=== PATIENT | female | born 1945 | race Hispanic/Latino ===

== ENCOUNTER 2017-04-02 13:35 | Outpatient (CLI) | payer MEDICARE, OTHER ==
--- NOTE | 2017-04-02 14:51 | Magnetic Resonance Report ---
MRI OF THE BRAIN WITHOUT CONTRAST: HISTORY: Memory loss PROCEDURE: Multiplanar, multisequence MR imaging of the brain without IV contrast was performed. FINDINGS: Mild nonspecific chronic white matter changes are identified. Otherwise, the brain parenchyma is within normal limits on all sequences. The florentino-white interface is well defined. No evidence for acute ischemia, hemorrhage or mass. No chronic infarct or extra-axial fluid collection. The midline structures are central. The basal cisterns are patent. Normal ventricular size. The orbital cavities and sella turcica demonstrate no abnormality. The visualized paranasal sinuses and mastoid air cells are well aerated. IMPRESSION: Unremarkable non-enhanced MRI of the brain. Nonspecific chronic white matter changes which appear appropriate for this persons age.
== END 2017-04-02 13:36 | disposition home or self-care (01) ==
LOC: MRI 13:35
PROVIDERS: ATTEND Internal Medicine
DX: R41.3 Other amnesia (principal); R90.82 White matter disease, unspecified; I11.0 Hypertensive heart disease with heart failure; I50.9 Heart failure, unspecified; E78.00 Pure hypercholesterolemia, unspecified; I25.10 Atherosclerotic heart disease of native coronary artery without angina pectoris; J18.9 Pneumonia, unspecified organism; F32.9 Major depressive disorder, single episode, unspecified; F41.9 Anxiety disorder, unspecified; Z87.891 Personal history of nicotine dependence
CPT/HCPCS: 70551

== ENCOUNTER 2017-11-05 10:45 | Outpatient (CLI) | payer MEDICARE, OTHER ==
--- NOTE | 2017-11-05 16:25 | Mammography Report ---
BILATERAL DIGITAL SCREENING MAMMOGRAM with CAD: 11/05/17 10:45:00 CLINICAL: Routine screening. COMPARISON:None. Previous [facility] mammograms are not available. FINDINGS: The breasts are almost entirely fatty.Scattered bilateral benign calcifications. No mass, architectural distortion or suspicious calcifications. IMPRESSION: No mammographic evidence of malignancy. BI-RADS CATEGORY: 2 -- Benign RECOMMENDATION: Routine mammographic screening in one year. COMMENT: Patient follow-up letters are generated by our [employer] application.
== END 2017-11-05 10:46 | disposition home or self-care (01) ==
LOC: MAMMO 10:45
PROVIDERS: ATTEND Internal Medicine
DX: Z12.31 Encounter for screening mammogram for malignant neoplasm of breast (principal)
CPT/HCPCS: 77067

== ENCOUNTER 2018-03-01 16:15 | Inpatient (IN) | payer MEDICARE, OTHER ==
[2018-03-01 17:48] LABS: Basophils % (Auto) 0.4 % (0.0-1.8); Eosinophils # (Auto) 0.2 K/mm3 (0.0-0.4); Eosinophils % (Auto) 2.6 % (0.0-4.3); Hematocrit 36.3 % (30.3-42.9); Hemoglobin 11.6 gm/dl (10.1-14.3); Lymphocytes % (Auto) 22.7 % (13.4-35.0); Mean Corpuscular HGB Conc 32 % (30-34); Mean Corpuscular Volume 78 fl (79-97); Monocytes # (Auto) 0.7 K/mm3 (0.0-0.8); Monocytes % (Auto) 7.7 % (0.0-7.3); Platelet Count 241 K/mm3 (140-440); Red Blood Count 4.65 M/mm3 (3.65-5.03); Red Cell Distribution Width 17.8 % (13.2-15.2)
--- NOTE | 2018-03-01 17:59 | Cat Scan Report ---
FINAL REPORT PROCEDURE: CT HEAD/BRAIN WO CON TECHNIQUE: Computerized tomography of the head was performed without contrast material. HISTORY: neuro deficits < 6hrs or sx present upon awakening COMPARISON: Prior CT scan of the brain 01/02/2018 FINDINGS: Brain: There is no evidence of intracranial hemorrhage. No parenchymal hemorrhage is seen. No mass lesions or mass effect is identified. No abnormal extra-axial fluid collections or masses are seen. Small old lacunar infarct versus prominent perivascular space again visualized posterior lateral aspect right basal ganglia. There is some decreased density seen in the periventricular white matter without mass effect. This is fairly symmetric and does not exhibit any mass effect consistent with gliosis probably on the basis of microvascular disease or white matter changes of aging. Ventricles: The ventricles, sulcal pattern and fissures are prominent consistent with atrophy. Bones: No evidence of acute fracture. Paranasal sinuses: Visualized portions are clear. Mastoid air cells: clear IMPRESSION: There is evidence of minimal atrophy and gliosis. There is a stable old lacunar infarct versus prominent perivascular space in the right basal ganglia. No acute intracranial abnormalities are identified.
[2018-03-01 18:00] LABS: INR 0.88 (0.87-1.13)
[2018-03-01 18:01] LABS: Partial Thromboplastin Time 26.6 Sec. (24.2-36.6)
[2018-03-01 18:03] LABS: BUN/Creatinine Ratio 17; Blood Urea Nitrogen 15 mg/dL (7-17); Hemolysis Index 1
[2018-03-01 18:14] LABS: Mean Corpuscular Hemoglobin 25 pg (28-32)
[2018-03-01 18:20] LABS: Chol/HDL Ratio 3.29 %; HDL Cholesterol 47 mg/dL (40-59); LDL Cholesterol,Direct 95 mg/dL (50-130)
[2018-03-02] MEDS ORDERED: ASPIRIN PO ONE (01:33)
--- NOTE | 2018-03-02 01:58 | Emergency Department Report ---
HPI - General Chief Complaint: Dizziness Time Seen by Provider: 03/02/18 01:23 - HPI HPI: Room 18 The patient is a 72-year-old female presenting with a chief complaint near syncope. The patient states today at approximate 14:00 while walking she began feeling dizzy as though she was going to pass out. The patient states she had a headache and neck pain at the time. The patient states she eventually made into the house and called EMS. Patient denied ever having chest pain or shortness of breath. Patient currently does not feel dizzy or have a headache. Patient denies any other forms of pain. Patient never lost consciousness Location: [See above] Duration: [See above] Quality: Headache, dizziness Severity: Currently 0/10 Modifying factors: [see above] Context: [see above] Mode of transportation: [not driving] ED Past Medical Hx - Past Medical History Hx Hypertension: Yes Hx Heart Attack/AMI: Yes Hx Diabetes: Yes Hx Renal Disease: Yes Additional medical history: kidney disease, anxiety - Surgical History Hx Coronary Stent: Yes (RCA stent placed 09/28/2017) Hx Open Heart Surgery: Yes Additional Surgical History: bypass, stents, cath - Family History Family history: no significant - Social History Smoking Status: Former Smoker (none since 2002) Substance Use Type: None - Medications Home Medications: Home Medications Medication Instructions Recorded Confirmed Last Taken Type Citalopram [Celexa] 40 mg PO DAILY 06/15/13 01/03/18 09/25/17 History Travoprost [Travatan Z 0.004%] 2.5 ml INTRAOCULA DAILY 06/15/13 01/03/18 History Insulin Detemir [Levemir Flexpen] 20 units SQ QHS 02/17/14 01/03/18 09/24/17 History ALPRAZolam [Xanax TAB] 0.25 mg PO BID PRN 07/18/15 01/03/18 09/25/17 History Calcium Carbonate [Calcium] 600 mg PO DAILY 07/18/15 01/03/18 09/25/17 History Dexlansoprazole [Dexilant] 60 mg PO QDAY 07/18/15 01/03/18 09/25/17 History ALBUTEROL NEB's [Proventil 0.083% 2.5 mg IH Q4HRT PRN nebu 10/01/17 01/03/18 Unknown Rx NEBS] Aspirin [Aspirin BABY CHEW TAB] 81 mg PO QDAY #30 tab.chew 10/01/17 01/03/18 Unknown Rx AtorvaSTATin [Lipitor] 10 mg PO DAILY #30 tablet 10/01/17 01/03/18 Unknown Rx Carvedilol [Coreg] 6.25 mg PO BID #60 tablet 10/01/17 01/03/18 Unknown Rx Famotidine [Pepcid] 20 mg PO BID #30 tablet 10/01/17 01/03/18 Unknown Rx Folic Acid [Folvite] 1 mg PO QDAY #30 tablet 10/01/17 01/03/18 Unknown Rx ISOSORBIDE MONOnitrate [Imdur ER] 30 mg PO DAILY #30 tablet 10/01/17 01/03/18 Unknown Rx Pramipexole [Mirapex] 1.5 mg PO TID #90 tablet 10/01/17 01/03/18 Unknown Rx Prasugrel [Effient] 10 mg PO QDAY #30 tablet 10/01/17 01/03/18 Unknown Rx clonazePAM [KlonoPIN] 0.5 mg PO QHS #30 tablet 10/01/17 01/03/18 Unknown Rx ED Review of Systems ROS: Stated complaint: LIGHT HEAD Other details as noted in HPI Constitutional: no symptoms reported Eyes: denies: eye pain ENT: denies: throat pain Respiratory: denies: shortness of breath Cardiovascular: denies: chest pain Gastrointestinal: denies: abdominal pain, nausea, vomiting Genitourinary: denies: dysuria Musculoskeletal: denies: back pain Neurological: headache, vertigo Physical Exam - Physical Exam Vital Signs: Vital Signs 03/01/18 03/02/18 17:12 00:34 Temperature 97.9 F 98.7 F Pulse Rate 75 69 Respiratory 18 17 Rate Blood Pressure 133/82 Blood Pressure 133/82 108/48 [Right] O2 Sat by Pulse 96 99 Oximetry Physical Exam: GENERAL: The patient is well-developed well-nourished female lying on stretcher not appearing to be in acute distress. [] HEENT: Normocephalic. Atraumatic. Extraocular motions are intact. Patient has moist mucous membranes. No nystagmus noted NECK: Supple. Trachea midline CHEST/LUNGS: Clear to auscultation. There is no respiratory distress noted. HEART/CARDIOVASCULAR: Regular. There is no tachycardia. There is no gallop rub or murmur. ABDOMEN: Abdomen is soft, nontender. Patient has normal bowel sounds. There is no abdominal distention. SKIN: There is no rash. There is no edema. There is no diaphoresis. NEURO: The patient is awake, alert, and oriented. The patient is cooperative. The patient has no focal neurologic deficits. The patient has normal speech. Cranial nerves II through XII grossly intact, no drift. Normal sensation throughout MUSCULOSKELETAL: There is no evidence of acute injury. ED Course Vital Signs 03/01/18 03/02/18 17:12 00:34 Temperature 97.9 F 98.7 F Pulse Rate 75 69 Respiratory 18 17 Rate Blood Pressure 133/82 Blood Pressure 133/82 108/48 [Right] O2 Sat by Pulse 96 99 Oximetry ED Medical Decision Making - Lab Data Result diagrams: 03/01/18 17:25 03/01/18 17:25 Laboratory Tests 03/01/18 03/01/18 03/01/18 17:25 17:25 17:25 WBC 8.8 RBC 4.65 Hgb 11.6 Hct 36.3 MCV 78 L MCH 25 L MCHC 32 RDW 17.8 H Plt Count 241 Lymph % (Auto) 22.7 [place] % (Auto) 7.7 H Eos % (Auto) 2.6 Baso % (Auto) 0.4 Lymph # 2.0 [place] # 0.7 Eos # 0.2 Baso # 0.0 Seg Neutrophils % 66.6 Seg Neutrophils # 5.9 PT 12.4 INR 0.88 APTT 26.6 Thrombin Time Sodium 142 Potassium 4.2 Chloride 102.3 Carbon Dioxide 28 Anion Gap 16 BUN 15 Creatinine 0.9 Estimated GFR > 60 BUN/Creatinine Ratio 17 Glucose 94 Calcium 9.0 Troponin T 0.037 H Triglycerides 139 Cholesterol 155 LDL Cholesterol Direct 95 HDL Cholesterol 47 Cholesterol/HDL Ratio 3.29 03/01/18 17:25 WBC RBC Hgb Hct MCV MCH MCHC RDW Plt Count Lymph % (Auto) [place] % (Auto) Eos % (Auto) Baso % (Auto) Lymph # [place] # Eos # Baso # Seg Neutrophils % Seg Neutrophils # PT INR APTT Thrombin Time 16.5 Sodium Potassium Chloride Carbon Dioxide Anion Gap BUN Creatinine Estimated GFR BUN/Creatinine Ratio Glucose Calcium Troponin T Triglycerides Cholesterol LDL Cholesterol Direct HDL Cholesterol Cholesterol/HDL Ratio - EKG Data -: EKG Interpreted by Me EKG shows normal: sinus rhythm Rate: normal - EKG Data When compared to previous EKG there are: previous EKG unavailable Interpretation: nonspecific ST-T wave maikol (T-wave inversion in lead V2) - Radiology Data Radiology results: report reviewed (CT head), image reviewed (CT head) [facility] [address] [place] [address] Cat Scan Report Signed Patient: YAYA AGUDELO MR#: [id number] : 1944 Acct:[id number] Age/Sex: 72 / F ADM Date: 03/01/18 Loc: ED Attending Dr: Ordering Physician: THELMA WRIGHT MD Date of Service: 03/01/18 Procedure(s): CT head/ brain wo con Accession Number(s): [id number] cc: ED MD ADRIANA FINAL REPORT PROCEDURE : CT HEAD/BRAIN WO CON TECHNIQUE: Computerized tomography of the head was performed without contrast material. HISTORY: neuro deficits lt; 6hrs or sx present upon awakening COMPARISON: Prior CT scan of the brain 01/02/2018 FINDINGS: Brain: There is no evidence of intracranial hemorrhage. No parenchymal hemorrhage is seen. No mass lesions or mass effect is identified. No abnormal extra-axial fluid collections or masses are seen. Small old lacunar infarct versus prominent perivascular space again visualized posterior lateral aspect right basal ganglia. There is some decreased density seen in the periventricular white matter without mass effect. This is fairly symmetric and does not exhibit any mass effect consistent with gliosis probably on the basis of microvascular disease or white matter changes of aging. Ventricles: The ventricles, sulcal pattern and fissures are prominent consistent with atrophy. Bones: No evidence of acute fracture. Paranasal sinuses: Visualized portions are clear. Mastoid air cells: clear IMPRESSION: There is evidence of minimal atrophy and gliosis. There is a stable old lacunar infarct versus prominent perivascular space in the right basal ganglia. No acute intracranial abnormalities are identified. Transcribed By: JESSICA Dictated By: TINO HOLLINS MD Electronically Authenticated By: TINO HOLLINS MD Signed Date/Time: 1754 DD/ 54 TD/TT: 03/01/181754 - Differential Diagnosis ICH, ACS, vertigo, dysrhythmia Critical care attestation.: If time is entered above; I have spent that time in minutes in the direct care of this critically ill patient, excluding procedure time. ED Disposition Clinical Impression: Elevated troponin, Near syncope Disposition: OP ADMIT IP TO THIS HOSP Is pt being admited?: Yes Does the pt Need Aspirin: Yes Condition: Fair Referrals: PRIMARY CARE,MD [Primary Care Provider] - 3-5 Days Time of Disposition: 02:28 (hospitalist paged (Dr. Radha Freeman))
[2018-03-02] MEDS ORDERED: TYLENOL PO PRN (03:05)
[2018-03-02] MEDS ORDERED: ZOFRAN IV PRN (03:05)
[2018-03-02 03:46] LABS: Creatine Kinase MB 10.7 ng/mL (0.0-4.0)
--- NOTE | 2018-03-02 08:51 | History and Physical Report ---
History of Present Illness Date of admission: 03/02/18 03:03 History of present illness: This is a 72-year-old woman with history of hypertension, diabetes, coronary artery disease, chronic kidney disease, glaucoma, pw syncope The patient is a 72-year-old female presenting with a chief complaint near syncope. The patient states today at approximate 14:00 while walking she began feeling dizzy as though she was going to pass out. The patient states she had a headache and neck pain at the time. The patient states she eventually made into the house and called EMS. Patient denied ever having chest pain or shortness of breath. Patient currently does not feel dizzy or have a headache. Patient denies any other forms of pain. Patient never lost consciousness PAST MEDICAL HISTORY: Hypertension, diabetes, coronary artery disease, chronic kidney disease, glaucoma PAST SURGICAL HISTORY: CABG SOCIAL HISTORY: Denies alcohol, tobacco, drugs FAMILY HISTORY: Hypertension Medications and Allergies Allergies Allergy/AdvReac Type Severity Reaction Status Date / Time benztropine Allergy Unknown Verified 12/16/15 12:58 doxycycline Allergy Headache Verified 12/16/15 12:58 Home Medications Medication Instructions Recorded Confirmed Last Taken Type Citalopram [Celexa] 40 mg PO DAILY 06/15/13 03/02/18 09/25/17 History Travoprost [Travatan Z 0.004%] 2.5 ml INTRAOCULA DAILY 06/15/13 03/02/18 History Insulin Detemir [Levemir Flexpen] 20 units SQ QHS 02/17/14 03/02/18 09/24/17 History ALPRAZolam [Xanax TAB] 0.25 mg PO BID PRN 07/18/15 03/02/18 09/25/17 History Calcium Carbonate [Calcium] 600 mg PO DAILY 07/18/15 03/02/18 09/25/17 History Dexlansoprazole [Dexilant] 60 mg PO QDAY 07/18/15 03/02/18 09/25/17 History ALBUTEROL NEB's [Proventil 0.083% 2.5 mg IH Q4HRT PRN nebu 10/01/17 03/02/18 Unknown Rx NEBS] Aspirin [Aspirin BABY CHEW TAB] 81 mg PO QDAY #30 tab.chew 10/01/17 03/02/18 Unknown Rx AtorvaSTATin [Lipitor] 10 mg PO DAILY #30 tablet 10/01/17 03/02/18 Unknown Rx Carvedilol [Coreg] 6.25 mg PO BID #60 tablet 10/01/17 03/02/18 Unknown Rx Famotidine [Pepcid] 20 mg PO BID #30 tablet 10/01/17 03/02/18 Unknown Rx Folic Acid [Folvite] 1 mg PO QDAY #30 tablet 10/01/17 03/02/18 Unknown Rx Pramipexole [Mirapex] 1.5 mg PO TID #90 tablet 10/01/17 03/02/18 Unknown Rx Prasugrel [Effient] 10 mg PO QDAY #30 tablet 10/01/17 03/02/18 Unknown Rx clonazePAM [KlonoPIN] 0.5 mg PO QHS #30 tablet 10/01/17 03/02/18 Unknown Rx ARIPiprazole [Abilify] 10 mg PO DAILY 03/02/18 03/02/18 Unknown History ISOSORBIDE MONOnitrate [Imdur ER] 60 mg PO DAILY 03/02/18 03/02/18 Unknown History Memantine [Namenda] 10 mg PO BID 03/02/18 03/02/18 Unknown History Ranitidine HCl [Zantac 150 MG TAB] 150 mg PO BID 03/02/18 03/02/18 Unknown History Ranolazine [Ranexa] 500 mg PO BID 03/02/18 03/02/18 Unknown History Active Meds: Active Medications Acetaminophen (Tylenol) 650 mg PO Q4H PRN PRN Reason: Non Cardiac Pain or Temp>100.5 Ondansetron HCl (Zofran) 4 mg IV Q4H PRN PRN Reason: N/V IF NPO AND NO IV ACCESS Exam - Constitutional Vitals: Temp Pulse Resp BP Pulse Ox 98.5 F 83 20 135/64 95 03/02/18 04:13 03/02/18 04:13 03/02/18 04:13 03/02/18 04:13 03/02/18 04:13 Results - Labs CBC & Chem 7: 03/01/18 17:25 03/01/18 17:25 Labs: Laboratory Last Values WBC 8.8 K/mm3 (4.5-11.0) 03/01/18 17:25 RBC 4.65 M/mm3 (3.65-5.03) 03/01/18 17:25 Hgb 11.6 gm/dl (10.1-14.3) 03/01/18 17:25 Hct 36.3 % (30.3-42.9) 03/01/18 17:25 MCV 78 fl (79-97) L 03/01/18 17:25 MCH 25 pg (28-32) L 03/01/18 17:25 MCHC 32 % (30-34) 03/01/18 17:25 RDW 17.8 % (13.2-15.2) H 03/01/18 17:25 Plt Count 241 K/mm3 (140-440) 03/01/18 17:25 Lymph % (Auto) 22.7 % (13.4-35.0) 03/01/18 17:25 [place] % (Auto) 7.7 % (0.0-7.3) H 03/01/18 17:25 Eos % (Auto) 2.6 % (0.0-4.3) 03/01/18 17:25 Baso % (Auto) 0.4 % (0.0-1.8) 03/01/18 17:25 Lymph # 2.0 K/mm3 (1.2-5.4) 03/01/18 17:25 [place] # 0.7 K/mm3 (0.0-0.8) 03/01/18 17:25 Eos # 0.2 K/mm3 (0.0-0.4) 03/01/18 17:25 Baso # 0.0 K/mm3 (0.0-0.1) 03/01/18 17:25 Seg Neutrophils % 66.6 % (40.0-70.0) 03/01/18 17:25 Seg Neutrophils # 5.9 K/mm3 (1.8-7.7) 03/01/18 17:25 PT 12.4 Sec. (12.2-14.9) 03/01/18 17:25 INR 0.88 (0.87-1.13) 03/01/18 17:25 APTT 26.6 Sec. (24.2-36.6) 03/01/18 17:25 Thrombin Time 16.5 Sec. (15.1-19.6) 03/01/18 17:25 Sodium 142 mmol/L (137-145) 03/01/18 17:25 Potassium 4.2 mmol/L (3.6-5.0) 03/01/18 17:25 Chloride 102.3 mmol/L (98-107) 03/01/18 17:25 Carbon Dioxide 28 mmol/L (22-30) 03/01/18 17:25 Anion Gap 16 mmol/L 03/01/18 17:25 BUN 15 mg/dL (7-17) 03/01/18 17:25 Creatinine 0.9 mg/dL (0.7-1.2) 03/01/18 17:25 Estimated GFR > 60 ml/min 03/01/18 17:25 BUN/Creatinine Ratio 17 % 03/01/18 17:25 Glucose 94 mg/dL (65-100) 03/01/18 17:25 Calcium 9.0 mg/dL (8.4-10.2) 03/01/18 17:25 Total Creatine Kinase 186 units/L (30-135) H 03/02/18 03:13 CK-MB (CK-2) 10.7 ng/mL (0.0-4.0) H 03/02/18 03:13 CK-MB (CK-2) Rel Index 5.7 (0-4) H 03/02/18 03:13 Troponin T 0.013 ng/mL (0.00-0.029) 03/02/18 03:13 Triglycerides 139 mg/dL (2-149) 03/01/18 17:25 Cholesterol 155 mg/dL (50-199) 03/01/18 17:25 LDL Cholesterol Direct 95 mg/dL (50-130) 03/01/18 17:25 HDL Cholesterol 47 mg/dL (40-59) 03/01/18 17:25 Cholesterol/HDL Ratio 3.29 % 03/01/18 17:25 Assessment and Plan Assessment and plan: 72f pw syncope . syncope, Transient automonic dysfunction; may be related to low bp, bp meds held . Hypertension bp meds held due to relative hypotension , diabetes resume lantus and ssi , coronary artery disease cardiology consulted recent stress test and echo in 10/08, unremarkable , chronic kidney disease stable, ntd
[2018-03-02] MEDS ORDERED: PROVENTIL IH PRN (08:56)
[2018-03-02] MEDS ORDERED: D50W (25GM) Syringe IV PRN (08:57)
[2018-03-02] MEDS ORDERED: NON-FORMULARY (Dexlansoprazole [Dexilant] 60 MG) PO SCH (10:00)
[2018-03-02] MEDS ORDERED: NON-FORMULARY (Travoprost [Travatan Z 0.004%] 2.5 ML) INTRAOCULA SCH (10:00)
[2018-03-02] MEDS ORDERED: NON-FORMULARY (Calcium Carbonate [Calcium] 600 MG) PO SCH (10:00)
[2018-03-02] MEDS ORDERED: PEPCID PO SCH (10:00)
[2018-03-02 11:29] LABS: Creatine Kinase MB 8.3 ng/mL (0.0-4.0)
[2018-03-02] MEDS: HumaLOG SUB-Q SCH ×3 (11:30→23:11)
[2018-03-02] MEDS: celeXA PO SCH (11:37)
[2018-03-02] MEDS: EFFIENT PO SCH (11:37)
[2018-03-02] MEDS: FOLVITE PO SCH (11:37)
[2018-03-02] MEDS: BABY ASPIRIN PO SCH (11:38)
--- NOTE | 2018-03-02 11:42 | Consultation ---
History of Present Illness Consult date: 03/02/18 Requesting physician: CYNTHIA NOEL Consult reason: syncope, other (low BP, history of CAD) History of present illness: The patient is a 72 year old female who is followed by Dr. Delgado in our office with a past medical history significant for CAD s/p CABG (2011 at [place]) and PCI (most recent PCI of RCA with TEQUILA on 09/28/17), HTN, DM, psych d/o. She presented with c/o lightheadedness and headache since yesterday around 2PM. She reports her headache is in the occipital area. She also reports that her BPs have been "running low" at home. She also reports stable, intermittent, exertional chest pain which she has experienced for years. She denies any palpitations, SOB, n/v, diaphoresis or syncope. On evaluation, she reports resolution of her symptoms and is requesting to be discharged home. Pharmacologic MPI stress test done 09/2017 was negative for significant ischemia , EF 63%. Echo done 12/2017 showed EF 50-55%, at least mild with mean gradient of 8mmHg , trace MR. Past History Past Medical History: CAD, diabetes, hypertension Past Surgical History: CABG, PTCA Medications and Allergies Allergies Allergy/AdvReac Type Severity Reaction Status Date / Time benztropine Allergy Unknown Verified 12/16/15 12:58 doxycycline Allergy Headache Verified 12/16/15 12:58 Home Medications Medication Instructions Recorded Confirmed Last Taken Type Citalopram [Celexa] 40 mg PO DAILY 06/15/13 03/02/18 09/25/17 History Travoprost [Travatan Z 0.004%] 2.5 ml INTRAOCULA DAILY 06/15/13 03/02/18 History Insulin Detemir [Levemir Flexpen] 20 units SQ QHS 02/17/14 03/02/18 09/24/17 History ALPRAZolam [Xanax TAB] 0.25 mg PO BID PRN 07/18/15 03/02/18 09/25/17 History Calcium Carbonate [Calcium] 600 mg PO DAILY 07/18/15 03/02/18 09/25/17 History Dexlansoprazole [Dexilant] 60 mg PO QDAY 07/18/15 03/02/18 09/25/17 History ALBUTEROL NEB's [Proventil 0.083% 2.5 mg IH Q4HRT PRN nebu 10/01/17 03/02/18 Unknown Rx NEBS] Aspirin [Aspirin BABY CHEW TAB] 81 mg PO QDAY #30 tab.chew 10/01/17 03/02/18 Unknown Rx AtorvaSTATin [Lipitor] 10 mg PO DAILY #30 tablet 10/01/17 03/02/18 Unknown Rx Carvedilol [Coreg] 6.25 mg PO BID #60 tablet 10/01/17 03/02/18 Unknown Rx Famotidine [Pepcid] 20 mg PO BID #30 tablet 10/01/17 03/02/18 Unknown Rx Folic Acid [Folvite] 1 mg PO QDAY #30 tablet 10/01/17 03/02/18 Unknown Rx Pramipexole [Mirapex] 1.5 mg PO TID #90 tablet 10/01/17 03/02/18 Unknown Rx Prasugrel [Effient] 10 mg PO QDAY #30 tablet 10/01/17 03/02/18 Unknown Rx clonazePAM [KlonoPIN] 0.5 mg PO QHS #30 tablet 10/01/17 03/02/18 Unknown Rx ARIPiprazole [Abilify] 10 mg PO DAILY 03/02/18 03/02/18 Unknown History ISOSORBIDE MONOnitrate [Imdur ER] 60 mg PO DAILY 03/02/18 03/02/18 Unknown History Memantine [Namenda] 10 mg PO BID 03/02/18 03/02/18 Unknown History Ranitidine HCl [Zantac 150 MG TAB] 150 mg PO BID 03/02/18 03/02/18 Unknown History Ranolazine [Ranexa] 500 mg PO BID 03/02/18 03/02/18 Unknown History Active Meds: Active Medications Acetaminophen (Tylenol) 650 mg PO Q4H PRN PRN Reason: Non Cardiac Pain or Temp>100.5 Albuterol (Proventil) 2.5 mg IH Q4HRT PRN PRN Reason: Shortness Of Breath Aspirin (Baby Aspirin) 81 mg PO QDAY [facility] Last Admin: 03/02/18 11:38 Dose: 81 mg Atorvastatin Calcium (Lipitor) 10 mg PO DAILY [facility] Last Admin: 03/02/18 11:37 Dose: 10 mg Calcium Carbonate/Glycine (Oscal) 1,250 mg PO DAILY [facility] Citalopram Hydrobromide (Celexa) 40 mg PO DAILY [facility] Last Admin: 03/02/18 11:37 Dose: 40 mg Dextrose (D50w (25gm) Syringe) 50 ml IV PRN PRN PRN Reason: Hypoglycemia Famotidine (Pepcid) 20 mg PO BID [facility] Last Admin: 03/02/18 11:37 Dose: 20 mg Folic Acid (Folvite) 1 mg PO QDAY [facility] Last Admin: 03/02/18 11:37 Dose: 1 mg Insulin Glargine (Lantus) 20 units SUB-Q QHS [facility] Insulin Human Lispro (Humalog) 0 unit SUB-Q ACHS [facility]; Protocol Miscellaneous Medication (Travoprost [Travatan Z 0.004%]) 2.5 ml INTRAOCULA DAILY [facility] Ondansetron HCl (Zofran) 4 mg IV Q4H PRN PRN Reason: N/V IF NPO AND NO IV ACCESS Pantoprazole Sodium (Protonix) 40 mg PO DAILY [facility] Pramipexole Dihydrochloride (Mirapex) 1.5 mg PO TID [facility] Prasugrel (Effient) 10 mg PO QDAY [facility] Last Admin: 03/02/18 11:37 Dose: 10 mg Review of Systems Constitutional: no weight loss, no weight gain, no fever, no chills, no sweats Ears, nose, mouth and throat: no ear pain, no nose pain, no sinus pressure, no sinus pain Cardiovascular: chest pain, lightheadedness, no orthopnea, no palpitations, no rapid/irregular heart beat, no edema, no syncope, no shortness of breath, no dyspnea on exertion Respiratory: no cough, no shortness of breath, no dyspnea on exertion, no congestion, no wheezing, no pain on inspiration Gastrointestinal: no abdominal pain, no nausea, no vomiting, no diarrhea, no constipation, no change in bowel habits Genitourinary Female: no pelvic pain, no flank pain, no dysuria, no urinary frequency, no urgency Musculoskeletal: no neck stiffness, no neck pain, no shooting arm pain, no arm numbness/tingling, no low back pain, no shooting leg pain, no leg numbness/ tingling, no redness of joints Integumentary: no rash, no pruritis, no redness, no sores, no wounds Neurological: headaches, no head injury, no paralysis, no weakness, no parathesias, no numbness, no tingling, no seizures, no syncope Psychiatric: no anxiety Endocrine: no cold intolerance, no heat intolerance Hematologic/Lymphatic: no easy bruising, no easy bleeding, no lymphadenopathy Allergic/Immunologic: no urticaria, no wheezing, no persistent infections Physical Examination Vital Signs Temp Pulse Resp BP Pulse Ox 97.9 F 75 18 133/82 96 03/01/18 17:12 03/01/18 17:12 03/01/18 17:12 03/01/18 17:12 03/01/18 17:12 General appearance: no acute distress HEENT: Positive: PERRL, Normocephaly, Mucus Membranes Moist Neck: Positive: neck supple, trachea midline Cardiac: Positive: Reg Rate and Rhythm, S1/S2 Lungs: Positive: clear to auscultation Neuro: Positive: Grossly Intact Abdomen: Positive: Soft. Negative: Tender Skin: Positive: Clear. Negative: Rash, Wound Musculoskeletal: No Fluid Collection, No Pain, Normal Range of Motion Extremities: Absent: edema Results 03/01/18 17:25 03/01/18 17:25 Cardiac Enzymes 03/02/18 03/02/18 Range/Units 03:13 09:40 CK-MB (CK-2) 10.7 H 8.3 H (0.0-4.0) ng/mL Coagulation 03/01/18 Range/Units 17:25 PT 12.4 (12.2-14.9) Sec. INR 0.88 (0.87-1.13) APTT 26.6 (24.2-36.6) Sec. Lipids 03/01/18 Range/Units 17:25 Triglycerides 139 (2-149) mg/dL Cholesterol 155 (50-199) mg/dL HDL Cholesterol 47 (40-59) mg/dL Cholesterol/HDL Ratio 3.29 % CBC 03/01/18 Range/Units 17:25 WBC 8.8 (4.5-11.0) K/mm3 RBC 4.65 (3.65-5.03) M/mm3 Hgb 11.6 (10.1-14.3) gm/dl Hct 36.3 (30.3-42.9) % Plt Count 241 (140-440) K/mm3 Lymph # 2.0 (1.2-5.4) K/mm3 [place] # 0.7 (0.0-0.8) K/mm3 Eos # 0.2 (0.0-0.4) K/mm3 Baso # 0.0 (0.0-0.1) K/mm3 Comprehensive Metabolic Panel 03/01/18 Range/Units 17:25 Sodium 142 (137-145) mmol/L Potassium 4.2 (3.6-5.0) mmol/L Chloride 102.3 (98-107) mmol/L Carbon Dioxide 28 (22-30) mmol/L BUN 15 (7-17) mg/dL Creatinine 0.9 (0.7-1.2) mg/dL Glucose 94 (65-100) mg/dL Calcium 9.0 (8.4-10.2) mg/dL - Imaging and Cardiology Echo: report reviewed ( 12/2017 showed EF 50-55%, at least mild with mean gradient of 8mmHg, trace MR) EKG: report reviewed, image reviewed EKG interpretations - Telemetry EKG Rhythm: Sinus Rhythm - EKG Sinus rhythms and dysrhythmias: sinus rhythm Myocardial infarction: anterior SD (old age or i Assessment and Plan Assessment: Lightheadedness - recurrent; currently resolved; head CT with NAF Headache - currently resolved; head CT with NAF CAD s/p CABG (2011 at [place]) and PCI (most recent PCI of RCA with TEQUILA on 09/28/17) Recurrent intermittent exertional chest pain - Pharmacologic MPI stress test done 09/2017 was negative for significant ischemia, EF 63%; ECG with no acute ischemic changes; currently resolved. Minimally elevated troponin - with downwards trend; unchanged from prior admissions; ECG with no acute ischemic changes. HTN - stable DM H/o psych d/o Plan: Cont home cardiac regimen. Obtain orthostatics. Pending orthostatics are unremarkable, pt may discharge home from cardiology standpoint. Recommend follow up in our office with Dr. Delgado within 2 weeks of hospital discharge ([phone]). The patient has been seen in conjunction with Dr. Barrett who agrees with the assessment and plan of care.
[2018-03-02] MEDS: MIRAPEX PO SCH ×2 (15:14→23:02)
[2018-03-02] MEDS ORDERED: LATANOPROST 0.005% OU SCH (22:00)
[2018-03-02] MEDS ORDERED: INSULIN DETEMIR 20 UNIT SQ SCH (22:00)
[2018-03-02] MEDS ORDERED: LANTUS SUB-Q SCH (22:00)
[2018-03-03] MEDS: HumaLOG SUB-Q SCH ×2 (08:25→12:10)
[2018-03-03] MEDS ORDERED: PROTONIX PO SCH (10:00)
[2018-03-03] MEDS ORDERED: OSCAL PO SCH (10:00)
[2018-03-03] MEDS: celeXA PO SCH (11:45)
[2018-03-03] MEDS: BABY ASPIRIN PO SCH (11:45)
[2018-03-03] MEDS: MIRAPEX PO SCH (11:45)
[2018-03-03] MEDS: EFFIENT PO SCH (11:45)
[2018-03-03] MEDS: FOLVITE PO SCH (11:45)
--- NOTE | 2018-03-03 15:39 | Discharge Summary ---
Providers - Providers Date of Admission: 03/02/18 03:03 Attending physician: CYNTHIA NOEL MD 03/02/18 10:12 Consult to Physician [CONS] Routine Comment: Consulting Provider: NADER BASHIR Physician Instructions: Reason For Exam: syncope. low BP, hx of cad Primary care physician: HOME CARE ASSISTANT Hospitalization Condition: Fair Hospital course: 72f pw syncope . syncope, Transient automonic dysfunction; may be related to low bp, bp meds held . Hypertension bp meds held due to relative hypotension , diabetes resume lantus and ssi , coronary artery disease cardiology consulted recent stress test and echo in 10/08, unremarkable , chronic kidney disease stable, ntd Disposition: TO HOME OR SELFCARE Time spent for discharge: 33 minutes Core Measure Documentation - Palliative Care Palliative Care/ Comfort Measures: Not Applicable - Core Measures Any of the following diagnoses?: none Exam - Constitutional Vitals: Temp Pulse Resp BP Pulse Ox 98.5 F 78 18 141/50 98 03/03/18 13:01 03/03/18 13:01 03/03/18 13:01 03/03/18 13:01 03/03/18 13:01 General appearance: Present: no acute distress, well-nourished - EENT Eyes: Present: PERRL ENT: hearing intact, clear oral mucosa - Neck Neck: Present: supple, normal ROM - Respiratory Respiratory effort: normal Respiratory: bilateral: CTA - Cardiovascular Heart Sounds: Present: S1 & S2. Absent: rub, click - Extremities Extremities: pulses symmetrical, No edema Peripheral Pulses: within normal limits - Abdominal General gastrointestinal: Present: soft, non-tender, non-distended, normal bowel sounds Female genitourinary: Present: normal - Integumentary Integumentary: Present: clear, warm, dry - Musculoskeletal Musculoskeletal: gait normal, strength equal bilaterally - Psychiatric Psychiatric: appropriate mood/affect, intact judgment & insight - Neurologic Neurologic: CNII-XII intact, moves all extremities Plan Follow up with: PRIMARY CARE, [Primary Care Provider] - 3-5 Days Prescriptions: Metoprolol Succinate [Toprol Xl] 25 mg PO DAILY #30 tab.er.24h
[2018-03-03 17:24] VITALS: BP 138/52
== END 2018-03-03 18:40 | disposition home or self-care (01) | DRG 74 ==
LOC: ED 16:15 → 4A 03-02 03:03
PROVIDERS: ADMIT Internal Medicine; ATTEND Internal Medicine
DX: G90.8 Other disorders of autonomic nervous system (principal); I95.9 Hypotension, unspecified; N18.9 Chronic kidney disease, unspecified; I12.9 Hypertensive chronic kidney disease with stage 1 through stage 4 chronic kidney disease, or unspecified chronic kidney disease; E11.22 Type 2 diabetes mellitus with diabetic chronic kidney disease; F41.9 Anxiety disorder, unspecified; I25.10 Atherosclerotic heart disease of native coronary artery without angina pectoris; H40.9 Unspecified glaucoma; Z82.49 Family history of ischemic heart disease and other diseases of the circulatory system; Z88.8 Allergy status to other drugs, medicaments and biological substances; Z87.891 Personal history of nicotine dependence; Z95.1 Presence of aortocoronary bypass graft
CPT/HCPCS: 36415; 70450; 80048; 80061; 82550; 82553; 82962; 84484; 85025; 85610; 85670; 85730; 93005; 93010; A9270-GY; J1815

== ENCOUNTER 2018-03-20 11:09 | Emergency (ER) | payer MEDICARE, OTHER ==
[2018-03-20] MEDS ORDERED: NACL 0.9% 50 ML ONE (11:21)
[2018-03-20] MEDS ORDERED: ACTIVASE ONE (11:22)
[2018-03-20] MEDS ORDERED: KEPPRA 1,000 MG/NS 0.75% 100ML 1,000 MG/100 ML BAG IV ONE (11:35)
--- NOTE | 2018-03-20 11:38 | Cat Scan Report ---
CT HEAD WITHOUT CONTRAST: 03/20/18 11:11 CLINICAL: 98N-STROKE ALERT. TECHNIQUE: 2.5-mm noncontrast scans. COMPARISON:03/01/18 FINDINGS: A peripheral right parietal lobe acute hemorrhage measures approximately 2.6 x 1.5 x 2.0 cm. It is located near the midline. Mild surrounding edema and slight mass effect with slight deviation of the falx to the left. No other hemorrhage. The fibroid is inferior to the placenta. The ventricles and sulci are slightly large for age but unchanged compared to the prior exam. Mild bilateral stable periventricular white matter hypodensities. Small bilateral chronic basal ganglia lacunar infarcts. No mass or mass effect. No hemorrhage, edema or extra-axial collection. The sinuses are clear. Normal orbits and soft tissues. The calvarium and skull base are intact. IMPRESSION: An acute intraparenchymal hemorrhage of the right parietal lobe with mild mass effect. Suspect hemorrhagic infarct. Mild chronic white matter microangiopathy and chronic bilateral basal ganglia lacunar infarcts. Verbal report was given to Dr. Pruitt in the emergency department on 03/20/18 at 11:35. 98N-STROKE ALERT
[2018-03-20 11:48] LABS: Basophils % (Auto) 0.4 % (0.0-1.8); Eosinophils # (Auto) 0.1 K/mm3 (0.0-0.4); Eosinophils % (Auto) 1.3 % (0.0-4.3); Hematocrit 36.5 % (30.3-42.9); Hemoglobin 11.7 gm/dl (10.1-14.3); Lymphocytes # (Auto) 1.3 K/mm3 (1.2-5.4); Lymphocytes % (Auto) 13.8 % (13.4-35.0); Mean Corpuscular HGB Conc 32 % (30-34); Mean Corpuscular Hemoglobin 25 pg (28-32); Mean Corpuscular Volume 78 fl (79-97); Monocytes # (Auto) 0.5 K/mm3 (0.0-0.8); Monocytes % (Auto) 5.6 % (0.0-7.3); Platelet Count 217 K/mm3 (140-440); Red Blood Count 4.69 M/mm3 (3.65-5.03)
[2018-03-20 11:59] LABS: INR 0.9 (0.87-1.13)
[2018-03-20 12:00] LABS: Partial Thromboplastin Time 25.2 Sec. (24.2-36.6)
[2018-03-20 12:03] LABS: BUN/Creatinine Ratio 12; Blood Urea Nitrogen 11 mg/dL (7-17); Hemolysis Index 5
--- NOTE | 2018-03-20 12:03 | Emergency Department Report ---
ED Neuro Deficit HPI - General Stated Complaint: POSSIBLE STROKE Time Seen by Provider: 03/20/18 11:14 - History of Present Illness Initial Comments: Patient is a 72 year old insulin-dependent diabetic with a history of hypertension who is taking Effient. She states that while she was taking a shower she developed left-sided weakness. Just shortly after the onset of symptoms at or about 10 AM she summoned EMS. Medics arrived at the scene to find the patient with a left hemiparesis. The patient did not complain of headache. She denied any sensory change. She denied any visual loss. She is able to communicate. Her GCS was 15 on arrival. She did not report any other intercurrent symptoms. She states that she is independent living. EMS stated that she has home health. However, the patient denied this. -: hour(s) Location: left arm, left leg Presenting Symptoms: Present: Weak/Paralyzed One Side History of same: No Place: home Severity: moderate Quality: weak Improves With: none On Anticoagulants: No (antiplatelet agent only) Context: sudden onset Associated Symptoms: denies other symptoms - Related Data Home Medications: Home Medications Medication Instructions Recorded Confirmed Last Taken Citalopram [Celexa] 40 mg PO DAILY 06/15/13 03/02/18 09/25/17 Travoprost [Travatan Z 0.004%] 2.5 ml INTRAOCULA DAILY 06/15/13 03/02/18 Insulin Detemir [Levemir Flexpen] 20 units SQ QHS 02/17/14 03/02/18 09/24/17 ALPRAZolam [Xanax TAB] 0.25 mg PO BID PRN 07/18/15 03/02/18 09/25/17 Calcium Carbonate [Calcium] 600 mg PO DAILY 07/18/15 03/02/18 09/25/17 Dexlansoprazole [Dexilant] 60 mg PO QDAY 07/18/15 03/02/18 09/25/17 ARIPiprazole [Abilify TAB] 10 mg PO DAILY 03/02/18 03/02/18 Unknown Memantine [Namenda] 10 mg PO BID 03/02/18 03/02/18 Unknown Ranolazine [Ranexa] 500 mg PO BID 03/02/18 03/02/18 Unknown Previous Rx's Medication Instructions Recorded Last Taken Type ALBUTEROL NEB's [Proventil 0.083% 2.5 mg IH Q4HRT PRN nebu 10/01/17 Unknown Rx NEBS] Aspirin [Aspirin BABY CHEW TAB] 81 mg PO QDAY #30 tab.chew 10/01/17 Unknown Rx AtorvaSTATin [Lipitor] 10 mg PO DAILY #30 tablet 10/01/17 Unknown Rx Famotidine [Pepcid] 20 mg PO BID #30 tablet 10/01/17 Unknown Rx Folic Acid [Folvite] 1 mg PO QDAY #30 tablet 10/01/17 Unknown Rx Pramipexole [Mirapex] 1.5 mg PO TID #90 tablet 10/01/17 Unknown Rx Prasugrel [Effient] 10 mg PO QDAY #30 tablet 10/01/17 Unknown Rx clonazePAM [KlonoPIN] 0.5 mg PO QHS #30 tablet 10/01/17 Unknown Rx Metoprolol Succinate [Toprol Xl] 25 mg PO DAILY #30 tab.er.24h 03/03/18 Unknown Rx Allergies/Adverse Reactions: Allergies Allergy/AdvReac Type Severity Reaction Status Date / Time benztropine Allergy Unknown Verified 12/16/15 12:58 doxycycline Allergy Headache Verified 12/16/15 12:58 ED Review of Systems ROS: Stated complaint: POSSIBLE STROKE Other details as noted in HPI Comment: All other systems reviewed and negative ED Past Medical Hx - Past Medical History Hx Hypertension: Yes Hx Heart Attack/AMI: Yes (2002) Hx Congestive Heart Failure: No Hx Diabetes: Yes Hx Renal Disease: Yes Hx Asthma: No Hx COPD: No Additional medical history: kidney disease, anxiety - Surgical History Hx Coronary Stent: Yes (RCA stent placed 09/28/2017) Hx Open Heart Surgery: Yes Additional Surgical History: bypass, stents, cath - Social History Smoking Status: Former Smoker Substance Use Type: None - Medications Home Medications: Home Medications Medication Instructions Recorded Confirmed Last Taken Type Citalopram [Celexa] 40 mg PO DAILY 06/15/13 03/02/18 09/25/17 History Travoprost [Travatan Z 0.004%] 2.5 ml INTRAOCULA DAILY 06/15/13 03/02/18 History Insulin Detemir [Levemir Flexpen] 20 units SQ QHS 02/17/14 03/02/1818 History ALPRAZolam [Xanax TAB] 0.25 mg PO BID PRN 07/18/15 03/02/18 09/25/17 History Calcium Carbonate [Calcium] 600 mg PO DAILY 07/18/15 03/02/18 09/25/17 History Dexlansoprazole [Dexilant] 60 mg PO QDAY 07/18/15 03/02/18 09/25/17 History ALBUTEROL NEB's [Proventil 0.083% 2.5 mg IH Q4HRT PRN nebu 10/01/17 03/02/18 Unknown Rx NEBS] Aspirin [Aspirin BABY CHEW TAB] 81 mg PO QDAY #30 tab.chew 10/01/17 03/02/18 Unknown Rx AtorvaSTATin [Lipitor] 10 mg PO DAILY #30 tablet 10/01/17 03/02/18 Unknown Rx Famotidine [Pepcid] 20 mg PO BID #30 tablet 10/01/17 03/02/18 Unknown Rx Folic Acid [Folvite] 1 mg PO QDAY #30 tablet 10/01/17 03/02/18 Unknown Rx Pramipexole [Mirapex] 1.5 mg PO TID #90 tablet 10/01/17 03/02/18 Unknown Rx Prasugrel [Effient] 10 mg PO QDAY #30 tablet 10/01/17 03/02/18 Unknown Rx clonazePAM [KlonoPIN] 0.5 mg PO QHS #30 tablet 10/01/17 03/02/18 Unknown Rx ARIPiprazole [Abilify TAB] 10 mg PO DAILY 03/02/18 03/02/18 Unknown History Memantine [Namenda] 10 mg PO BID 03/02/18 03/02/18 Unknown History Ranolazine [Ranexa] 500 mg PO BID 03/02/18 03/02/18 Unknown History Metoprolol Succinate [Toprol Xl] 25 mg PO DAILY #30 tab.er.24h 03/03/18 Unknown Rx ED Neuro Physical Exam - General General appearance: alert, in no apparent distress Suspected Stroke: Yes - Head Head exam: Present: atraumatic, normocephalic - Eye Eye exam: Present: normal appearance, other (case was slightly disconjugate at rest but extraocular exam is intact otherwise on pursuit). Absent: scleral icterus - ENT ENT exam: Present: mucous membranes moist - Neck Neck exam: Present: normal inspection. Absent: tenderness, meningismus - Respiratory Respiratory exam: Present: normal lung sounds bilaterally. Absent: respiratory distress - Cardiovascular Cardiovascular Exam: Present: regular rate, normal rhythm. Absent: systolic murmur, diastolic murmur, rubs, gallop - GI/Abdominal GI/Abdominal exam: Present: soft, normal bowel sounds. Absent: distended, tenderness, guarding, rebound, rigid - Extremities Exam Extremities exam: Present: normal inspection - Back Exam Back exam: Present: normal inspection - Neurological Exam Neurological exam: Present: alert, oriented X3, CN II-XII intact, motor sensory deficit - NIHSS Assessment Interval: Baseline 1a. Level of Consciousness: alert 1b. LOC Questions: answers correctly 1c. LOC Commands: performs tasks correctly 2. Best Gaze: normal 3. Visual: no visual loss 4. Facial Palsy: normal symmetrical movement 5b. Motor Arm Right: no drift 5a. Motor Arm Left: some gravity effort 6a. Motor Leg Left: no gravity effort 6b. Motor Leg Right: no drift 7. Limb Ataxia: absent 8. Sensory: normal 9. Best Language: no aphasia 10. Dysarthria: normal 11. Extinction/Inattention: no abnormality Total Score: 5 Stroke Severity: Moderate Stroke - Psychiatric Psychiatric exam: Present: anxious, flat affect - Skin Skin exam: Present: warm, dry, intact, normal color. Absent: rash ED Course - Reevaluation(s) Reevaluation #1: On reassessment the patient's weakness seems somewhat worse than on initial exam although that was in the hallway. She has really no gravity effort of the left lower extremity and some of the left upper extremity. Her GCS remains 15. Her blood pressure is controlled. She was given a gram of Keppra IV prophylactically. I spoke to Dr. Kelly Tolliver, the neurosurgeon at [facility]. He has accepted the patient to the neuro ICU at [facility]. Patient has an assigned bed. Transport is in progress. The patient is appropriate for ground transportation. I spoke to the patient's son concerning the risks of her condition and the benefit of transfer to a neuro ICU. 03/20/18 12:04 - Lab Data Result diagrams: 03/20/18 11:35 Lab Results 03/20/18 03/20/18 Range/Units 11:16 11:35 WBC 9.1 (4.5-11.0) K/mm3 RBC 4.69 (3.65-5.03) M/mm3 Hgb 11.7 (10.1-14.3) gm/dl Hct 36.5 (30.3-42.9) % MCV 78 L (79-97) fl MCH 25 L (28-32) pg MCHC 32 (30-34) % RDW 17.0 H (13.2-15.2) % Plt Count 217 (140-440) K/mm3 Lymph % (Auto) 13.8 (13.4-35.0) % Gray % (Auto) 5.6 (0.0-7.3) % Eos % (Auto) 1.3 (0.0-4.3) % Baso % (Auto) 0.4 (0.0-1.8) % Lymph # 1.3 (1.2-5.4) K/mm3 [place] # 0.5 (0.0-0.8) K/mm3 Eos # 0.1 (0.0-0.4) K/mm3 Baso # 0.0 (0.0-0.1) K/mm3 Seg Neutrophils % 78.9 H (40.0-70.0) % Seg Neutrophils # 7.2 (1.8-7.7) K/mm3 POC Glucose 148 H (70-105) Laboratory Results - last 24 hr 03/20/18 03/20/18 03/20/18 11:16 11:35 11:35 WBC 9.1 RBC 4.69 Hgb 11.7 Hct 36.5 MCV 78 L MCH 25 L MCHC 32 RDW 17.0 H Plt Count 217 Lymph % (Auto) 13.8 Gray % (Auto) 5.6 Eos % (Auto) 1.3 Baso % (Auto) 0.4 Lymph # 1.3 Gray # 0.5 Eos # 0.1 Baso # 0.0 Seg Neutrophils % 78.9 H Seg Neutrophils # 7.2 PT 12.6 INR 0.90 APTT 25.2 Thrombin Time Sodium Potassium Chloride Carbon Dioxide Anion Gap BUN Creatinine Estimated GFR BUN/Creatinine Ratio Glucose POC Glucose 148 H Calcium Troponin T 03/20/18 03/20/18 11:35 11:35 WBC RBC Hgb Hct MCV MCH MCHC RDW Plt Count Lymph % (Auto) Gray % (Auto) Eos % (Auto) Baso % (Auto) Lymph # Gray # Eos # Baso # Seg Neutrophils % Seg Neutrophils # PT INR APTT Thrombin Time 17.2 Sodium 139 Potassium 3.7 Chloride 102.5 Carbon Dioxide 23 Anion Gap 17 BUN 11 Creatinine 0.9 Estimated GFR > 60 BUN/Creatinine Ratio 12 Glucose 137 H POC Glucose Calcium 9.0 Troponin T < 0.010 - EKG Data EKG shows normal: sinus rhythm, axis (left axis deviation), intervals, QRS complexes (somewhat low voltage), ST-T waves (no acute ischemic changes) - Radiology Data interpreted by me: Spoke with radiologist. The patient has a 2.61.52.0 cm deep right parietal hemorrhage with mild mass effect. Chest x-ray shows previous CABG but no acute process otherwise Critical Care Time: Yes Critical care time in (mins) excluding proc time.: 90 Critical care attestation.: If time is entered above; I have spent that time in minutes in the direct care of this critically ill patient, excluding procedure time. ED Disposition Clinical Impression: Cerebral hemorrhage Disposition: DC/TX-70 ANOTHER TYPE HLTHCARE Is pt being admited?: Yes Does the pt Need Aspirin: No (contraindicated) Condition: Stable Time of Disposition: 12:08
[2018-03-20 12:08] LABS: Alanine Aminotransferase 16 units/L (7-56); Albumin 3.8 g/dL (3.9-5)
[2018-03-20 12:26] LABS: Bilirubin,Direct < 0.2 mg/dL (0-0.2)
[2018-03-20] MEDS ORDERED: NORMODYNE IV ONE (12:50)
[2018-03-20 13:17] VITALS: BP 151/70
--- NOTE | 2018-03-20 13:23 | XRay Report ---
AP CHEST : 03/20/18 11:09:00 CLINICAL: Hypertension. COMPARISON:02/26/14 FINDINGS: The lungs are underexpanded. The right hemidiaphragm is elevated but this is unchanged compared to the previous exam. Normal heart and pulmonary vessels. The lungs are clear. No airspace disease or pleural effusion. Median sternotomy wires. IMPRESSION: No acute cardiopulmonary process.
== END 2018-03-20 13:30 | disposition other institution (70) ==
LOC: ED 11:09
DX: I61.9 Nontraumatic intracerebral hemorrhage, unspecified (principal); I10 Essential (primary) hypertension; I25.2 Old myocardial infarction; E11.9 Type 2 diabetes mellitus without complications; F41.9 Anxiety disorder, unspecified; Z95.1 Presence of aortocoronary bypass graft; Z87.891 Personal history of nicotine dependence; Z79.82 Long term (current) use of aspirin; Z79.4 Long term (current) use of insulin; Z88.8 Allergy status to other drugs, medicaments and biological substances
CPT/HCPCS: 36415; 70450; 71045; 80048; 80074; 82962; 83735; 83880; 84100; 84484; 85025; 85610; 85670; 85730; 93005; 93010; 96374; 99291; 99292; J1953; J2997